=== PATIENT | male | born 1965 | race Caucasian/White ===

== ENCOUNTER 2021-09-03 04:29 | Day surgery (SDC) | payer BC ==
[2021-09-01 10:08] VITALS: BMI 28.8
[2021-09-03] MEDS ORDERED: SIMETHICONE 40 MG/0.6 ML BOTTLE ONE (08:08)
[2021-09-03 09:55] VITALS: BP 116/70; PULSE 71; TEMP 98
== END 2021-09-03 09:30 | disposition home or self-care (01) ==
LOC: JASU-ENDO 04:29
PROVIDERS: ATTEND Internal Medicine Gastroenterology
PROC: 0DBN8ZX Excision of Sigmoid Colon, Via Natural or Artificial Opening Endoscopic, Diagnostic (ICD-10-PCS; 2021-09-03)
PROC: 0DBM8ZX Excision of Descending Colon, Via Natural or Artificial Opening Endoscopic, Diagnostic (ICD-10-PCS; principal; 2021-09-03 08:00)
DX: Z12.11 Encounter for screening for malignant neoplasm of colon (principal); Z86.010 Personal history of colon polyps; D12.4 Benign neoplasm of descending colon; D12.7 Benign neoplasm of rectosigmoid junction
CPT/HCPCS: 88305-TC